=== PATIENT | male | born 2000 | race Caucasian/White ===

== ENCOUNTER 2021-10-13 15:57 | Emergency (ER) | payer OTHER ==
[~2021-10-13] VITALS: Ht 190 cm; Wt 91.0 kg
[2021-10-13] MEDS ORDERED: NS IV 1000 ML 1,000 ML IV SCH (16:45)
[2021-10-13 16:49] LABS: BASOPHILS % (AUTO) 0 % (0-10); EOSINOPHILS % (AUTO) 0 % (0-10); HEMATOCRIT 45 % (40-54); HEMOGLOBIN 15.1 g/dL (13.3-17.7); LYMPHOCYTES # (AUTO) 0.6 10^3/uL (1.0-4.0); LYMPHOCYTES % (AUTO) 7 % (12-44); MEAN CORPUSCULAR HEMOGLOBIN 29 pg (25-34); MEAN CORPUSCULAR HGB CONC 34 g/dL (32-36); MEAN CORPUSCULAR VOLUME 87 fL (80-99); MEAN PLATELET VOLUME 11.3 fL (9.0-12.2); MONOCYTES # (AUTO) 0.5 10^3/uL (0.0-1.0); MONOCYTES % (AUTO) 6 % (0-12); NEUTROPHILS % (AUTO) 87 % (42-75); PLATELET COUNT 237 10^3/uL (130-400); WHITE BLOOD COUNT 9.3 10^3/uL (4.3-11.0)
[2021-10-13 16:51] LABS: ALBUMIN 4.4 GM/DL (3.2-4.5); POTASSIUM 3.7 MMOL/L (3.6-5.0)
[2021-10-13 16:52] LABS: CALCIUM 9.1 MG/DL (8.5-10.1)
[2021-10-13 16:53] LABS: TOTAL PROTEIN 7.5 GM/DL (6.4-8.2)
[2021-10-13 16:55] LABS: BILIRUBIN,TOTAL 0.9 MG/DL (0.1-1.0)
[2021-10-13 16:57] LABS: CREATININE SERUM 0.82 MG/DL (0.60-1.30)
[2021-10-13 17:06] LABS: BILIRUBIN,URINE NEGATIVE (NEGATIVE); CLARITY,URINE CLEAR; COLOR,URINE YELLOW; GLUCOSE, URINE (UA) NEGATIVE (NEGATIVE); KETONES,URINE NEGATIVE (NEGATIVE); LEUKOCYTE ESTERASE ,URINE NEGATIVE (NEGATIVE); NITRITE,URINE NEGATIVE (NEGATIVE); PH,URINE 6.5 (5-9); PROTEIN,URINE TRACE (NEGATIVE)
--- NOTE | 2021-10-13 17:08 | ED General ---
General Chief Complaint: Cardiac/General Problems Stated Complaint: HIGH HEART RATE Nursing Triage Note: STATES THEY WOKE UP THIS AM WITH ABD PAIN N/V/D. WENT TO [facility] AND THEY DETECTED A HR IN THE 200'S AND SENT HIM TO THE ER Source of Information: Patient Exam Limitations: No Limitations History of Present Illness Date Seen by Provider: Oct 13, 2021 Time Seen by Provider: 16:11 Initial Comments Here with report of nausea and vomiting overnight with central abdominal pain. States that he vomited multiple times and had multiple episodes of diarrhea. He went to [facility] today due to concerns about possible appendicitis and they were doing the work-up. He was found to have an episode of heart rate in the 200s both on EKG and manual count. This was brie and not sustained but concerning so was referred here for further evaluation. Heart rate now in the 90s. He still has the abdominal pain with concerns for appendicitis. It is pe riumbilical with some right lower quadrant pain with walking. 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 States he usually just breaks out with fish. Denies other significant medical problems. He has never had tachycardia before. No family history known to him for tachycardic events. Timing/Duration: 12-24 Hours, Changing Over Time Severity: Moderate Associated Systoms: No Chest Pain, No Cough, No Fever/Chills; Nausea/Vomiting; No Shortness of Air; Weakness Allergies and Home Medications Allergies Coded Allergies: Fish Containing Products (Verified Allergy, Unknown, 10/13/21) egg (Verified Allergy, Unknown, 10/13/21) peanut (Verified Allergy, Unknown, 10/13/21) Patient Home Medication List Home Medication List Reviewed: Yes Review of Systems Review of Systems Constitutional: see HPI; No chills, No fever EENTM: No nose congestion, No throat pain Respiratory: No cough, No short of breath Cardiovascular: No chest pain; palpitations Gastrointestinal: abdominal pain, diarrhea, nausea, vomiting Genitourinary: no symptoms reported Musculoskeletal: no symptoms reported Skin: No change in color, No lesions Psychiatric/Neurological: Denies Headache, Denies Weakness All Other Systems Reviewed Negative Unless Noted: Yes Past Fblkiyc-Bwkqji-Bteyfs Hx Patient Social History Tobacco Use?: No Use of E-Cig and/or Vaping dev: Yes E-Cig or Vaping type used: Nicotine Substance use?: No Alcohol Use?: Yes Alcohol Frequency: Once in a while Immunizations Up To Date Second COVID19 Vaccination Melvin: 08/11 COVID19 Vaccine Forex Trader: SILAS Past Medical History Surgeries: No Respiratory: No Neurological: No Genitourinary: No Gastrointestinal: No Musculoskeletal: No Endocrine: No Family Medical History Reviewed Nursing Family Hx No Pertinent Family Hx Physical Exam Vital Signs Vital Signs - First Documented 10/13/21 16:00 Temp 36.3 Pulse 89 Resp 16 B/P (MAP) 122/61 (81) Pulse Ox 96 O2 Delivery Room Air Capillary Refill : Less Than 3 Seconds Height, Weight, BMI Height: '" Weight: lbs. oz. kg; 25.00 BMI Method: General Appearance: No Apparent Distress, WD/WN HEENT: PERRL/EOMI, Pharynx Normal Neck: Non Tender, Supple Respiratory: Lungs Clear, Normal Breath Sounds Cardiovascular: Regular Rate, Rhythm, No Murmur Gastrointestinal: Normal Bowel Sounds, Soft, Tenderness (Right lower quadrant and periumbilical) Back: Normal Inspection, No CVA Tenderness, No Vertebral Tenderness Extremity: Normal Range of Motion, Non Tender Neurologic/Psychiatric: Alert, Oriented x3 Skin: Normal Color, Warm/Dry Progress/Results/Core Measures Suspected Sepsis SIRS Temperature: Pulse: 89 Respiratory Rate: 16 Laboratory Tests 10/13/21 16:29: White Blood Count 9.3 Blood Pressure 122 /61 Mean: 81 Laboratory Tests 10/13/21 16:29: Creatinine 0.82, Platelet Count 237, Total Bilirubin 0.9 Results/Orders Lab Results Laboratory Tests Test 10/13/21 16:29 10/13/21 17:03 Range/Units White Blood Count 9.3 4.3-11.0 10^3/uL Red Blood Count 5.17 4.30-5.52 10^6/uL Hemoglobin 15.1 13.3-17.7 g/dL Hematocrit 45 40-54 % Mean Corpuscular Volume 87 80-99 fL Mean Corpuscular Hemoglobin 29 25-34 pg Mean Corpuscular Hemoglobin Concent 34 32-36 g/dL Red Cell Distribution Width 13.4 10.0-14.5 % Platelet Count 237 130-400 10^3/uL Mean Platelet Volume 11.3 9.0-12.2 fL Immature Granulocyte % (Auto) 1 % Neutrophils (%) (Auto) 87 H 42-75 % Lymphocytes (%) (Auto) 7 L 12-44 % Monocytes (%) (Auto) 6 0-12 % Eosinophils (%) (Auto) 0 0-10 % Basophils (%) (Auto) 0 0-10 % Neutrophils # (Auto) 8.0 H 1.8-7.8 10^3/uL Lymphocytes # (Auto) 0.6 L 1.0-4.0 10^3/uL Monocytes # (Auto) 0.5 0.0-1.0 10^3/uL Eosinophils # (Auto) 0.0 0.0-0.3 10^3/uL Basophils # (Auto) 0.0 0.0-0.1 10^3/uL Immature Granulocyte # (Auto) 0.1 0.0-0.1 10^3/uL Neutrophils % (Manual) 89 % Lymphocytes % (Manual) 6 % Monocytes % (Manual) 1 % Eosinophils % (Manual) 1 % Basophils % (Manual) 1 % Reactive Lymphocytes 2 % Blood Morphology Comment NORMAL Sodium Level 136 135-145 MMOL/L Potassium Level 3.7 3.6-5.0 MMOL/L Chloride Level 101 98-107 MMOL/L Carbon Dioxide Level 21 21-32 MMOL/L Anion Gap 14 5-14 MMOL/L Blood Urea Nitrogen 15 7-18 MG/DL Creatinine 0.82 0.60-1.30 MG/DL Estimat Glomerular Filtration Rate 129 BUN/Creatinine Ratio 18 Glucose Level 107 H 70-105 MG/DL Calcium Level 9.1 8.5-10.1 MG/DL Corrected Calcium 8.8 8.5-10.1 MG/DL Total Bilirubin 0.9 0.1-1.0 MG/DL Aspartate Amino Transf (AST/SGOT) 19 5-34 U/L Alanine Aminotransferase (ALT/SGPT) 25 0-55 U/L Alkaline Phosphatase 55 40-136 U/L C-Reactive Protein High Sensitivity 0.38 0.00-0.50 MG/DL Total Protein 7.5 6.4-8.2 GM/DL Albumin 4.4 3.2-4.5 GM/DL Urine Color YELLOW Urine Clarity CLEAR Urine pH 6.5 5-9 Urine Specific [place] 1.025 H 1.016-1.022 Urine Protein TRACE H NEGATIVE Urine Glucose (UA) NEGATIVE NEGATIVE Urine Ketones NEGATIVE NEGATIVE Urine Nitrite NEGATIVE NEGATIVE Urine Bilirubin NEGATIVE NEGATIVE Urine Urobilinogen 1.0 < = 1.0 MG/DL Urine Leukocyte Esterase NEGATIVE NEGATIVE Urine RBC (Auto) NEGATIVE NEGATIVE Urine RBC NONE /HPF Urine WBC 0-2 /HPF Urine Squamous Epithelial Cells RARE /HPF Urine Crystals NONE /LPF Urine Bacteria TRACE /HPF Urine Casts NONE /LPF Urine Mucus MODERATE H /LPF Urine Culture Indicated NO My Orders Orders - LARRY RAMIREZ MD Ct Abdomen/Pelvis Wo (10/13/21 16:34) Ed Iv/Invasive Line Start (10/13/21 16:34) Ed Iv/Invasive Line Start (10/13/21 16:34) Ns Iv 1000 Ml (Sodium Chloride 0.9%) (10/13/21 16:45) Cbc With Automated Diff (10/13/21 16:34) Comprehensive Metabolic Panel (10/13/21 16:34) Hs C Reactive Protein (10/13/21 16:34) Ua Culture If Indicated (10/13/21 16:34) Manual Differential (10/13/21 16:29) Metoprolol Succinate (Xl) Tab (Toprol Xl (10/13/21 18:15) Vital Signs/I&O 10/13/21 16:00 Temp 36.3 Pulse 89 Resp 16 B/P (MAP) 122/61 (81) Pulse Ox 96 O2 Delivery Room Air Capillary Refill : Less Than 3 Seconds Blood Pressure Mean: 81 Progress Note : Progress Note Seen and evaluated. IV, labs and EKG done. UA ordered. CT abdomen and pelvis without contrast due to allergy to fish. Patient with concerns for appendicitis but also SVT event. EKG does not show ectopy. Does have some T wave inversions. See below. Normal saline 1 L bolus ordered. Monitor patient. Patient did decline pain and nausea medicine at this time. 1854: I have discussed the case with Dr. Fierro. CT abdomen pelvis negative. Patient has not had any tachycardic events here and overall feels better. Dr Fierro will see him in office tomorrow. Toprol-XL 50 mg p.o. given as blood pressure was 120s systolic and heart rate was in the 70s. I did get a copy of the EKG from the clinic which does show sinus tachycardia at rate of 118 and second EKG shows sinus tachycardia with a rate of 97. Discharged home with return precautions. Patient verbalized understanding instructions and agreement with plan. ECG Initial ECG Impression Date: Oct 13, 2021 Initial ECG Impression Time: 16:16 Initial ECG Rate: 95 Initial ECG Rhythm: Normal Sinus Comment Sinus rhythm with normal but rightward axis. T wave inversion noted inferiorly in leads III and aVF. No evidence of ST elevation LA. No previous available for comparison. Interpreted by me. Diagnostic Imaging Diagonstic Imaging: CT Plain Films/CT/US/NM/MRI: abdomen, pelvis Comments NAME: JANES ORDAZ [employer] REC#: [id number] PT STATUS: REG ER : 2000 PHYSICIAN: LARRY RAMIREZ MD ADMIT DATE: 10/13/21/ER Signed Date of Exam:10/13/21 CT ABDOMEN/PELVIS WO PROCEDURE: CT abdomen and pelvis without contrast. TECHNIQUE: Multiple contiguous axial images were obtained through the abdomen and pelvis without the use of intravenous contrast. Auto Exposure Controls were utilized during the CT exam to meet ALARA standards for radiation dose reduction. DATE: October 13, 2021. COMPARISON: None. INDICATION: 21-year-old male, abdominal pain. Tachycardia. FINDINGS: There are limitations for evaluation of the abdominal organs, neoplastic processes, abscess, and limited evaluation of the vasculature relating to the lack of intravenous contrast. The visualized portions of the lung bases are clear. The heart is not enlarged. There is no identified pericardial effusion. The liver is unremarkable in size and contour. The gallbladder is unremarkable. There is no intrahepatic or extrahepatic bile duct dilation. The main pancreatic duct is not abnormally dilated. Limited noncontrast assessment of the pancreatic parenchyma is unremarkable. The spleen is normal in size. The adrenal glands are unremarkable. Limited noncontrast assessment of the renal parenchyma is unremarkable. There is no identified renal or ureteral stone. The urinary bladder is unremarkable. The intestinal tract is not distended. The appendix is unremarkable. There is no free intraperitoneal air. There is no drainable fluid collection. There is no free pelvic fluid. There is no identified abnormally enlarged lymph node in the abdomen or pelvis meeting CT size criteria for adenopathy. There is no identified acute bony abnormality. IMPRESSION: CT ABDOMEN AND PELVIS. 1. No identified acute abnormality in the abdomen or pelvis. Dictated by: Dictated on workstation # [id number] Dict: [id number] Trans: 10/13/21 [address] [facility] [id number] Interpreted by: KATRINA WHATLEY MD Electronically signed by: KATRINA WHATLEY MD 10/13/21 Departure Impression Primary Impression: Nausea vomiting and diarrhea Additional Impressions: Dehydration Supraventricular tachycardia, paroxysmal Disposition: 01 HOME, SELF-CARE Condition: Improved Departure-Patient Inst. Decision time for Depature: 18:55 Referrals: JUNITO FIERRO MD [facility] Patient Instructions: Diarrhea, Adult ED, Dehydration, Adult ED, Nausea and Vom iting, Adult ED, Paroxysmal Supraventricular Tachycardia (DC) Add. Discharge Instructions: All discharge instructions reviewed with patient and/or family. Voiced understanding. Drink plenty of fluids by taking small sips frequently of fluids such as Sprite, viraj payton, Gatorade or other electrolyte containing solutions that are watered- down. Call Dr Fierro's office in the morning for appointment same day. Let them know the case was discussed with Dr Fierro and he wants to see you same day. Return for worse pain, fever, vomiting, weakness, breathing problems, palpitations, chest pain or other concerns as needed. Clear or light diet for the next 24 hours and then advance as tolerated. Copy Copies To 1: JUNITO FIERRO MD [facility] LARRY RAMIREZ MD Oct 13, 2021 17:08
--- NOTE | 2021-10-13 17:13 | Diagnostic Imaging Report ---
PROCEDURE: CT abdomen and pelvis without contrast. TECHNIQUE: Multiple contiguous axial images were obtained through the abdomen and pelvis without the use of intravenous contrast. Auto Exposure Controls were utilized during the CT exam to meet ALARA standards for radiation dose reduction. DATE: October 13, 2021. COMPARISON: None. INDICATION: 21-year-old male, abdominal pain. Tachycardia. FINDINGS: There are limitations for evaluation of the abdominal organs, neoplastic processes, abscess, and limited evaluation of the vasculature relating to the lack of intravenous contrast. The visualized portions of the lung bases are clear. The heart is not enlarged. There is no identified pericardial effusion. The liver is unremarkable in size and contour. The gallbladder is unremarkable. There is no intrahepatic or extrahepatic bile duct dilation. The main pancreatic duct is not abnormally dilated. Limited noncontrast assessment of the pancreatic parenchyma is unremarkable. The spleen is normal in size. The adrenal glands are unremarkable. Limited noncontrast assessment of the renal parenchyma is unremarkable. There is no identified renal or ureteral stone. The urinary bladder is unremarkable. The intestinal tract is not distended. The appendix is unremarkable. There is no free intraperitoneal air. There is no drainable fluid collection. There is no free pelvic fluid. There is no identified abnormally enlarged lymph node in the abdomen or pelvis meeting CT size criteria for adenopathy. There is no identified acute bony abnormality. IMPRESSION: CT ABDOMEN AND PELVIS. 1. No identified acute abnormality in the abdomen or pelvis. Dictated by: Dictated on workstation # [id number]
[2021-10-13 17:17] LABS: BACTERIA,URINE TRACE /HPF; SQUAMOUS EPITHELIAL CELL,UR RARE /HPF; WBC,URINE 0-2 /HPF
[2021-10-13 17:21] LABS: BASOPHILS % (MANUAL) 1 %; EOSINOPHILS % (MANUAL) 1 %; LYMPHOCYTES % (MANUAL) 6 %; MONOCYTES % (MANUAL) 1 %; NEUTROPHILS % (MANUAL) 89 %; RBC MORPH NORMAL; REACTIVE LYMPHOCYTES 2 %
[2021-10-13] MEDS ORDERED: meTOproloL SUCCINATE 50 MG (TOPROL XL) TAB PO SCH (18:15)
[2021-10-13 18:59] VITALS: BP 111/61
== END 2021-10-13 18:59 | disposition home or self-care (01) ==
LOC: ER 16:05
DX: R11.2 Nausea with vomiting, unspecified (principal); R19.7 Diarrhea, unspecified; E86.0 Dehydration; I47.1 Supraventricular tachycardia
CPT/HCPCS: 36415; 74176; 80053; 81000; 85007; 85027; 86141; 93005